=== PATIENT | male | born 1955 | race Caucasian/White ===

== ENCOUNTER → 2018-08-06 | Outpatient (CLI) | payer BC, OTHER ==
--- NOTE | 2018-08-08 21:17 | SLEEPHOME ---
DATE OF PROCEDURE: 08/06/2018 ORDERED BY: RAIMUNDO Engel Diagnostic home sleep testing was performed due to concern for the obstructive sleep apnea syndrome. For testing, a nocturnal T3 respiratory monitoring device was used. Continuous record was made of pulse, oxygen saturation, airflow, chest, abdominal strain and body position. 9 hours and 59 minutes of data were reviewed. There were 6 hours and 30 minutes marked as time in bed. During the interval marked time in bed, there were 115 respiratory events identified of 10 seconds in duration or greater for a respiratory event index of 17.7. The events were primarily obstructive. Baseline pulse rate 82 beats per minute, pulse rate ranged 66-105. Baseline saturation 92%. Saturations fell to 86%. Testing was performed in both the supine and nonsupine positions. IMPRESSION Abnormal home sleep testing with repetitive respiratory events and oxygen desaturations to 86% with a respiratory event index of 17.7 is consistent with the obstructive sleep apnea syndrome. RECOMMENDATIONS The patient should be encouraged to undergo formal sleep evaluation.
== END ==
LOC: M SLEEP HO 10:29
PROVIDERS: ATTEND Nurse Practitioner Family
DX: R06.83 Snoring (principal)

== ENCOUNTER → 2018-12-05 | Outpatient (CLI) | payer BC, OTHER ==
--- NOTE | 2018-12-10 16:16 | SLEEPCENT ---
DATE OF PROCEDURE: 12/05/2018 ORDERED BY: RAIMUNDO Wilkinson Nocturnal polysomnography was performed for the titration of pressure therapy in this patient with a clinical diagnosis of obstructive sleep apnea syndrome. Respiratory event index of 17.7. For testing the patient was fit with a [facility] Sim[employer] full-face mask of medium size, 4 cm of water pressure were applied to the circuit and the lights were extinguished. 7 hours and 28 minutes of data were reviewed. There were 286.5 minutes of sleep identified. Sleep latency was normal at 9.5 minutes. Rapid eye movement (REM) latency was normal at 84 minutes. Sleep architecture was good with four REM cycles. Overall sleep efficiency 65.2%. The patient's electrocardiogram showed a sinus rhythm with an average heart rate of 70 beats per minute. EEG showed normal waveforms for awake and sleep. Best sleep was seen on a continuous positive airway pressure (CPAP) of +8. There was some limb activity noted despite pressure therapy. Limb movement arousal index was 8.2. IMPRESSION: Obstructive sleep apnea syndrome (G47.33). RECOMMENDATIONS Nightly use of pressure therapy 8 cm of water.
== END ==
LOC: M SLEEP 18:35
PROVIDERS: ATTEND Nurse Practitioner Family
DX: G47.33 Obstructive sleep apnea (adult) (pediatric) (principal)

== ENCOUNTER → 2024-01-25 | Outpatient (REF) | payer MEDICARE, OTHER | LOC: M LAB REF 17:23 | PROVIDERS: ATTEND Podiatrist Foot & Ankle Surgery | DX: L90.5 Scar conditions and fibrosis of skin (principal) ==

== ENCOUNTER → 2024-10-21 | Outpatient (CLI) | payer MEDICARE, BC ==
[~2024-10-21] MED LIST: METHACHOLINE KIT (6 VIAL.NEB PREMIX) INH ONE
== END ==
LOC: M CARPUL 10:43
PROVIDERS: ATTEND Physician Assistant
DX: R06.02 Shortness of breath (principal)
CPT/HCPCS: 94070; 95070; J7674